=== PATIENT | female | born 1985 | race Caucasian/White ===

== ENCOUNTER 2017-10-15 07:08 | Emergency (ER) | payer SELFPAY ==
[2017-10-15] MEDS ORDERED: NORMAL SALINE 1000 ML 1,000 ML IV PRN (07:35)
[2017-10-15] MEDS ORDERED: ACETAMINOPHEN 325 MG TABLET PO ONE (07:36)
--- NOTE | 2017-10-15 07:38 | ER Document Report ---
ED Fever - General Chief Complaint: Fever Stated Complaint: FEVER Time Seen by Provider: 10/15/17 07:28 Notes: Patient is a 31-year-old female presents emergency department complaining of fever, sore throat, runny nose and dry cough for the past 3 days. She denies any sick contacts at home. She states that she did not get a flu vaccine this year. Otherwise she denies any purulent drainage, ear pain, shortness of breath , chest pain, nausea, vomiting, abdominal pain, diarrhea, constipation. Patient states that she has not been drinking many fluids due to her sore throat. Patient did take Motrin approximately 6 AM 800 mg prior to arrival. Otherwise healthy female. Current smoker TRAVEL OUTSIDE OF THE [place] IN LAST 30 DAYS: No - Related Data Allergies/Adverse Reactions: No Known Allergies Allergy (Unverified 09/12/17 10:48) Past Medical History - Social History Smoking Status: Unknown if Ever Smoked Family History: None Patient has suicidal ideation: No Patient has homicidal ideation: No Pulmonary Medical History: Reports: Hx Asthma Renal/ Medical History: Denies: Hx Peritoneal Dialysis Past Surgical History: Reports: Hx Section, Hx Orthopedic Surgery - left knee - Immunizations Hx Diphtheria, Pertussis, Tetanus Vaccination: Yes Review of Systems - Review of Systems Constitutional: See HPI EENT: See HPI Cardiovascular: No symptoms reported Respiratory: See HPI Gastrointestinal: No symptoms reported -: Yes All other systems reviewed and negative Physical Exam - Vital signs Vitals: Temp Pulse Resp BP Pulse Ox 101.7 F H 111 H 16 98/62 L 97 10/15/17 07:20 10/15/17 07:20 10/15/17 07:20 10/15/17 07:20 10/15/17 07:20 - Notes Notes: PHYSICAL EXAM GENERAL: Alert, interacts well. HEENT: NCAT, pale conjunctiva, extraocular movements intact, pupils PERRL. external ear normal, no evidence of external auditory canal tenderness, blood/ drainage, cerumen impaction, TM intact without evidence of effusion, bulging, injection, MMM, Uvula midline. Airway patent. Pharyngeal erythema with tonsillar exudates no evidence of tonsillar enlargement, peritonsillar abscess, retropharyngeal abscess. NECK: Full range of motion. Supple. Trachea midline. LUNGS: Clear to auscultation bilaterally, no wheezes, rales, or rhonchi. No respiratory distress. HEART: Regular rate and rhythm. No murmurs, gallops, or rubs. ABDOMEN: Soft, nondistended, nontender. No guarding, rebound, or rigidity.. Bowel sounds present in all 4 quadrants. EXTREMITIES: Moves all 4 extremities spontaneously. No edema, radial and dorsalis pedis pulses 2/4 bilaterally. No cyanosis. NEUROLOGICAL: Alert and oriented x4. Normal speech. PSYCH: Normal affect, normal mood. SKIN: Diaphoretic, warm, dry, normal turgor. No rashes or lesions noted. Course - Re-evaluation Re-evalutation: 10/15/17 10:07 Patient is a 31-year-old female presents emergency department with sore throat, fever. Rapid strep was negative as well as influenza and mono. Physical exam is consistent with strep pharyngitis. Patient did receive IM penicillin. Otherwise discussed strict return precautions with the patient and she is stable for discharge home. - Vital Signs Vital signs: Temp Pulse Resp BP Pulse Ox 98.3 F 74 19 98/60 L 97 10/15/17 10:00 10/15/17 10:00 10/15/17 10:00 10/15/17 10:00 10/15/17 10:00 - Laboratory Result Diagrams: 10/15/17 07:50 10/15/17 07:50 Laboratory results interpreted by me: 10/15/17 10/15/17 10/15/17 07:50 07:50 09:05 WBC 22.5 H Seg Neuts % (Manual) 83 H Band Neutrophils % 2 L Lymphocytes % (Manual) 10 L Abs Neuts (Manual) 19.1 H Glucose 144 H Ur Leukocyte Esterase TRACE H Discharge - Discharge Clinical Impression: Strep pharyngitis Condition: Good Disposition: HOME, SELF-CARE Instructions: Strep Throat ([facility]) Additional Instructions: Please be sure to drink plenty of fluids, you can take Tylenol and Motrin as needed for pain. His return to the emergency department with any worsening symptoms, fever of 100 103 not responding to Tylenol and Motrin. Any difficulty swallowing, worsening pain or difficulty speaking or breathing. Referrals: [facility] [NO LOCAL MD] - Follow up as needed [facility] [Provider Group] - Follow up as needed
[2017-10-15 08:11] LABS: HEMATOCRIT 39.6 % (36.0-47.0); HEMOGLOBIN 13.5 g/dL (12.0-15.5); HGB HCT DIFFERENCE 0.9; MEAN CORPUSCULAR HEMOGLOBIN 29.7 pg (27.0-33.4); MEAN CORPUSCULAR HGB CONC 34.2 g/dL (32.0-36.0); MEAN CORPUSCULAR VOLUME 87 fl (80-97); RED BLOOD COUNT 4.56 10^6/uL (3.72-5.28); RED CELL DISTRIBUTION WIDTH 13.7 % (11.5-14.0); WHITE BLOOD COUNT 22.5 10^3/uL (4.0-10.5)
[2017-10-15 08:20] LABS: ANION GAP 12 (5-19); BLOOD UREA NITROGEN 7 mg/dL (7-20); CALCIUM 9.3 mg/dL (8.4-10.2); CARBON DIOXIDE 23 mmol/L (22-30); CHLORIDE 106 mmol/L (98-107); CREATININE RESULT 0.84 mg/dL (0.52-1.25); GLUCOSE 144 mg/dL (75-110); POTASSIUM 3.6 mmol/L (3.6-5.0); SODIUM 141.2 mmol/L (137-145)
--- NOTE | 2017-10-15 08:25 | RADIOLOGY REPORT (SQ) ---
EXAM DESCRIPTION: CHEST PA/LAT COMPLETED DATE/TIME: 10/15/2017 8:17 am REASON FOR STUDY: cough, fever COMPARISON: 09/12/2017. EXAM PARAMETERS: NUMBER OF VIEWS: two views TECHNIQUE: Digital Frontal and Lateral radiographic views of the chest acquired. RADIATION DOSE: NA LIMITATIONS: none FINDINGS: LUNGS AND PLEURA: No opacities, masses or pneumothorax. No pleural effusion. MEDIASTINUM AND HILAR STRUCTURES: No masses or contour abnormalities. HEART AND VASCULAR STRUCTURES: Heart normal size. No evidence for failure. BONES: No acute findings. HARDWARE: None in the chest. OTHER: No other significant finding. IMPRESSION: NO SIGNIFICANT RADIOGRAPHIC FINDING IN THE CHEST. TECHNICAL DOCUMENTATION: JOB ID: [id number] [employer]- All Rights Reserved
[2017-10-15 08:46] LABS: BAND NEUTROPHILS % (MANUAL) 2 % (3-5); BASOPHILS % (MANUAL) 0 % (0-2); EOSINOPHILS % (MANUAL) 0 % (0-6); LYMPHOCYTES % (MANUAL) 10 % (13-45); POLYCHROMASIA SLIGHT; TOTAL CELLS COUNTED 100; TOXIC GRANULATION SLIGHT
[2017-10-15] MEDS ORDERED: PENICILLIN G BENZATHINE 1.2 MILLION UNIT/2 ML DISP.SYRIN IM ONE (09:11)
[2017-10-15] MEDS ORDERED: KETOROLAC TROMETHAMINE INJ/PF 30 MG/1 ML SDV IV ONE (09:12)
[2017-10-15 09:37] LABS: APPEARANCE,URINE SLIGHTLY-CLOUDY; BILIRUBIN,URINE NEGATIVE (NEGATIVE); GLUCOSE, URINE NEGATIVE (NEGATIVE); KETONES,URINE NEGATIVE (NEGATIVE); LEUKOCYTE ESTERASE,URINE TRACE (NEGATIVE); NITRITE,URINE NEGATIVE (NEGATIVE); PROTEIN,URINE NEGATIVE (NEGATIVE); URINE SPECIFIC GRAVITY 1.014; UROBILINOGEN,URINE NEGATIVE mg/dL (<2.0)
[2017-10-15 10:00] VITALS: BP 98/60
== END 2017-10-15 10:19 | disposition home or self-care (01) ==
LOC: ER 07:08
DX: J02.0 Streptococcal pharyngitis (principal); R50.9 Fever, unspecified; R05 Cough; R09.89 Other specified symptoms and signs involving the circulatory and respiratory systems; F17.200 Nicotine dependence, unspecified, uncomplicated; J45.909 Unspecified asthma, uncomplicated
CPT/HCPCS: 99283; 36415; 87070; 87880; 85025; 86308; 80048; 81001; 87804; 71020; J1885; J0561; J7030

== ENCOUNTER 2017-10-17 06:13 | Emergency (ER) | payer SELFPAY ==
[2017-10-17 06:23] VITALS: BP 117/79
[2017-10-17 07:52] LABS: ABSOLUTE EOSINOPHILS # (AUTO) 0.2 10^3/uL (0.0-0.6); ABSOLUTE LYMPHOCYTES (AUTO) 2.1 10^3/uL (0.5-4.7); ABSOLUTE MONOCYTES (AUTO) 0.8 10^3/uL (0.1-1.4); ABSOLUTE NEUT (AUTO) 12.6 10^3/uL (1.7-8.2); BASOPHILS % (AUTO) 0.1 % (0-2); EOSINOPHILS % (AUTO) 1.4 % (0-6); HEMATOCRIT 39.3 % (36.0-47.0); HEMOGLOBIN 13.4 g/dL (12.0-15.5); HGB HCT DIFFERENCE 0.9; LYMPHOCYTES % (AUTO) 13.2 % (13-45); MEAN CORPUSCULAR HEMOGLOBIN 29.5 pg (27.0-33.4); MEAN CORPUSCULAR VOLUME 87 fl (80-97); MONOCYTES % (AUTO) 5.3 % (3-13); RED BLOOD COUNT 4.55 10^6/uL (3.72-5.28); WHITE BLOOD COUNT 15.8 10^3/uL (4.0-10.5)
[2017-10-17 08:05] LABS: ANION GAP 12 (5-19); BLOOD UREA NITROGEN 5 mg/dL (7-20); CALCIUM 9.1 mg/dL (8.4-10.2); CARBON DIOXIDE 27 mmol/L (22-30); CHLORIDE 106 mmol/L (98-107); CREATININE RESULT 0.63 mg/dL (0.52-1.25); GLUCOSE 101 mg/dL (75-110); POTASSIUM 3.9 mmol/L (3.6-5.0); SODIUM 144.5 mmol/L (137-145)
[2017-10-17 08:10] LABS: APPEARANCE,URINE SLIGHTLY-CLOUDY; BILIRUBIN,URINE NEGATIVE (NEGATIVE); GLUCOSE, URINE NEGATIVE (NEGATIVE); KETONES,URINE 20 mg/dL (NEGATIVE); LEUKOCYTE ESTERASE,URINE NEGATIVE (NEGATIVE); NITRITE,URINE NEGATIVE (NEGATIVE); PROTEIN,URINE 30 mg/dL (NEGATIVE); URINE SPECIFIC GRAVITY 1.024
[2017-10-17 08:18] LABS: BACTERIA,URINE 1+ /HPF; RBC,URINE 0-1 /HPF; WBC,URINE 0-1 /HPF
--- NOTE | 2017-10-17 08:40 | ER Document Report ---
ED General - General Chief Complaint: Sore Throat Stated Complaint: INFECTION WORSENING Time Seen by Provider: 10/17/17 07:01 Mode of Arrival: Ambulatory Information source: Patient Notes: Patient is a 31-year-old obese white female who returns to the emergency room from a previous visit on 10/15/2017. During that visit patient had a extensive workup with chest x-ray urine labs and mono and rapid strep all of which were negative with the exception of she had a white count of 22,000. Patient was given a shot of penicillin IM and went home. She had a documented temp here in ER on that day of 101.7. Patient returns today stating she not feeling all that much better. She also complains of new onset of the left eye infection. Patient states that she is finally broken fevers alternating Tylenol and Motrin and she is able to hydrate herself now where she was not before. She is here because she just does not feel that much better. She currently states that there were no fevers while on Tylenol and Motrin and has not had one since being seen on the . Patient also states that prior to her visit on the she had been sick going back into August with an upper respiratory infection that got better on its own which after a week return with sinus presentation was treated with with antibiotics and got better and then this onset. TRAVEL OUTSIDE OF THE [place] IN LAST 30 DAYS: No - HPI Onset: Last week Onset/Duration: Gradual Quality of pain: Achy Pain Level: 3 Associated symptoms: Body/muscle aches, Chills, Nonproductive cough, Sinus pain/ drainage, Sore throat Exacerbated by: Denies Relieved by: Denies Similar symptoms previously: Yes Recently seen / treated by doctor: Yes - Here in ER - Related Data Allergies/Adverse Reactions: No Known Allergies Allergy (Unverified 09/12/17 10:48) Past Medical History - General Information source: Patient - Social History Smoking Status: Current Every Day Smoker Cigarette use (# per day): Yes - One half pack a day Chew tobacco use (# tins/day): No Smoking Education Provided: Yes Frequency of alcohol use: None Drug Abuse: None 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 Lives with: Family Family History: None, Reviewed & Not Pertinent Patient has suicidal ideation: No Patient has homicidal ideation: No Pulmonary Medical History: Reports: Hx Asthma Renal/ Medical History: Denies: Hx Peritoneal Dialysis Past Surgical History: Reports: Hx Section, Hx Orthopedic Surgery - left knee - Immunizations Hx Diphtheria, Pertussis, Tetanus Vaccination: Yes Review of Systems - Review of Systems Constitutional: Chills, Fever, Malaise, Weakness, Recent illness EENT: Eye discharge, Tearing, Nose congestion, Nose discharge, Sinus pressure, Sinus discharge, Throat pain, Difficulty swallowing Cardiovascular: No symptoms reported Respiratory: Cough Gastrointestinal: No symptoms reported Genitourinary: No symptoms reported Female Genitourinary: No symptoms reported Musculoskeletal: No symptoms reported Skin: No symptoms reported Hematologic/Lymphatic: No symptoms reported Neurological/Psychological: No symptoms reported -: Yes All other systems reviewed and negative Physical Exam - Vital signs Vitals: Temp Pulse Resp BP Pulse Ox 98.4 F 90 16 117/79 97 10/17/17 06:18 10/17/17 06:18 10/17/17 06:18 10/17/17 06:18 10/17/17 06:18 Interpretation: Normal - General General appearance: Alert, Other - Patient is awake and alert. No apparent distress at this time. Appears somewhat ill with congestion runny nose noticeable on examination. - HEENT Head: Normocephalic, Atraumatic Eyes: Pale conjunctiva, Tears Conjunctiva: Injected, Purulent discharge, Other - Left side only. Crusting on lashes greenish discharge Ears: Normal External canal: Normal Tympanic membrane: Bulging. No: Normal, Hemotympanum, Injected, Loss of landmarks, Perforation, Purulent effusion, Retracted, Serous effusion, Other Sinus: Abnormal, Frontal, Maxillary, Tenderness Nasal: Purulent discharge Mouth/Lips: Normal Mucous membranes: Normal, Moist Pharynx: Other - Examination patient's posterior pharynx shows a moderate amount of erythema throughout with drainage in the posterior pharynx to be somewhat greenish yellow in color. Patient has bilateral tonsillar enlargement with exudate noted in the crevices of the tonsils. Uvula is midline with erythema but no exudate. There is no encroachment upon the uvula. Airway is patent. Patient also displays mild tenderness on her anterior cervical lymph nodes. Neck: Lymphadenopathy - Respiratory Respiratory status: No respiratory distress Chest status: Nontender Breath sounds: Normal. No: Decreased air movement, Nonproductive cough, Productive cough, Rales, Rhonchi, Stridor, Wheezing, Other Chest palpation: Normal - Cardiovascular Rhythm: Regular Heart sounds: Normal auscultation Murmur: No Normal capillary refill: Yes - Abdominal Inspection: Normal Distension: No distension. No: Distended, Tympanitic, Fluid wave, Distended bladder, Other Bowel sounds: Normal Tenderness: Nontender Organomegaly: No organomegaly, Other - Palpation patient's left side shows no splenomegaly noted at this time.. No: Hepatomegaly, Splenomegaly, Mass - Genitourinary External exam: Normal - Back Back: Normal, Nontender - Neurological Neuro grossly intact: Yes Cognition: Normal Orientation: AAOx4 [place] Com[place] Scale Eye Opening: Spontaneous [place] Coma Scale Verbal: Oriented [place] Com[place] Scale Motor: Obeys Commands [place] Com[place] Scale Total: 15 Speech: Normal Course - Vital Signs Vital signs: Temp Pulse Resp BP Pulse Ox 98.4 F 90 16 117/79 97 10/17/17 06:18 10/17/17 06:18 10/17/17 06:18 10/17/17 06:18 10/17/17 06:18 - Laboratory Result Diagrams: 10/17/17 07:30 10/17/17 07:30 Laboratory results interpreted by me: 10/17/17 10/17/17 10/17/17 07:30 07:30 07:30 WBC 15.8 H Seg Neutrophils % 80.0 H Absolute Neutrophils 12.6 H BUN 5 L Urine Protein Urine Ketones Urine Urobilinogen Urine Ascorbic Acid Monotest POSITIVE H 10/17/17 07:30 WBC Seg Neutrophils % Absolute Neutrophils BUN Urine Protein 30 H Urine Ketones 20 H Urine Urobilinogen 4.0 H Urine Ascorbic Acid 40 H Monotest - Transfer of Care Notes: 10/17/17 08:45 Reexamination patient shows she is awake alert and still oriented. I patient's labs came back positive for mono. Her white count was decreased from 22,000-15, 000. She is afebrile on examination today. At this time our patient's been having the sinusitis in frontal maxillary sinus tenderness going on now for approximately 2-3 weeks she is getting some nasty drainage. Realizes this may be associated with her mono however given the length of time and limited treatment at this time will place her on Augmentin with Sudafed and a little steroid. This is not treating the mono but treating the sinusitis. Discharge - Discharge Clinical Impression: Mononucleosis Sinusitis Qualifiers: Sinusitis location: maxillary Chronicity: subacute Qualified Code(s): J01.00 - Acute maxillary sinusitis, unspecified Condition: Good Disposition: HOME, SELF-CARE Instructions: Sore Throat ([facility]), Mononucleosis ([facility]), Sinusitis ([facility]) Additional Instructions: Home and rest. Medication as prescribed. The antibiotics and the steroid are primarily being used for your sinus condition that has become long-lasting and prior to you getting a mono. There is really no treatment for mononucleosis however you need to monitor yourself if you should have any abdominal pain or discomfort the fevers continue without any resolution or you have any concerns return to ER. Also he should not engage in any type of physical activity that could cause blunt trauma to the abdomen. Should you have concerns return to ER for a recheck. We have given you the [facility] highly suggest you make an appointment for recheck. Continue with Tylenol alternating with Motrin every 4 hours keep the fever down. Continue pushing the fluids to stay hydrated. Prescriptions: Amox Tr/Potassium Clavulanate [Augmentin 875-125 Tablet] 1 tab PO BID 10 Days # 20 tablet Amox Tr/Potassium Clavulanate [Augmentin 875-125 Tablet] 1 tab PO BID 10 Days # 20 tablet Prednisone [Sterapred Ds] 10 mg PO ASDIR PRN 6 Days #1 tab.ds.pk PRN Reason: Prednisone [Sterapred Ds] 10 mg PO ASDIR PRN #1 tab.ds.pk PRN Reason: Pseudoephedrine HCl [Sudafed 12-Hour] 120 mg PO BID #20 tablet.er Pseudoephedrine HCl [Sudafed 12-Hour] 120 mg PO BID #20 tablet.er Forms: Smoking Cessation Education, Elevated Blood Pressure
== END 2017-10-17 09:48 | disposition home or self-care (01) ==
LOC: ER 06:13
DX: H10.9 Unspecified conjunctivitis (principal); J01.00 Acute maxillary sinusitis, unspecified; B27.90 Infectious mononucleosis, unspecified without complication; E66.9 Obesity, unspecified; F17.210 Nicotine dependence, cigarettes, uncomplicated
CPT/HCPCS: 36415; 80048; 81001; 85025; 86308; 87070; 87880; 99283

== ENCOUNTER 2017-10-30 11:44 | Emergency (ER) | payer SELFPAY ==
[2017-10-30] MEDS ORDERED: ALBUTEROL SULFATE 0.083% NEB 2.5 MG/3 ML AMPUL NEB ONE (12:39)
--- NOTE | 2017-10-30 12:41 | ER Document Report ---
ED Medical Screen (RME) - General Chief Complaint: Breathing Difficulty Stated Complaint: DIFFICULTY BREATHING Time Seen by Provider: 10/30/17 12:38 Mode of Arrival: Ambulatory Information source: Patient Notes: Patient states that this is her fourth visit in 3 weeks for cough cold and congestion. She states she was initially told that she had an upper respiratory infection and was placed on Zithromax. It would not get any better so she returned and was diagnosed with mono. This was still not improving so she went to urgent care and was diagnosed with sinusitis and given Augmentin. She states she has now finished Augmentin but does not feel any better. She states she is still short of breath and congested and has productive cough. She is taking albuterol and prednisone at home but no relief. TRAVEL OUTSIDE OF THE [place] IN LAST 30 DAYS: No - Related Data Allergies/Adverse Reactions: No Known Allergies Allergy (Verified 10/30/17 11:45) Past Medical History - Social History Chew tobacco use (# tins/day): No Frequency of alcohol use: None Drug Abuse: None Pulmonary Medical History: Reports: Hx Asthma - smoker Renal/ Medical History: Denies: Hx Peritoneal Dialysis Past Surgical History: Reports: Hx Section, Hx Orthopedic Surgery - left knee - Immunizations Hx Diphtheria, Pertussis, Tetanus Vaccination: Yes Physical Exam - Vital signs Vitals: Temp Pulse Resp BP Pulse Ox 98.3 F 108 H 20 121/78 97 10/30/17 12:08 10/30/17 12:08 10/30/17 12:08 10/30/17 12:08 10/30/17 12:08 Course - Vital Signs Vital signs: Temp Pulse Resp BP Pulse Ox 98.3 F 108 H 20 121/78 97 10/30/17 12:08 10/30/17 12:08 10/30/17 12:08 10/30/17 12:08 10/30/17 12:08
[2017-10-30 13:11] LABS: ABSOLUTE LYMPHOCYTES (AUTO) 1.1 10^3/uL (0.5-4.7); ABSOLUTE MONOCYTES (AUTO) 0.3 10^3/uL (0.1-1.4); ABSOLUTE NEUT (AUTO) 10.4 10^3/uL (1.7-8.2); BASOPHILS % (AUTO) 0.3 % (0-2); EOSINOPHILS % (AUTO) 0.1 % (0-6); HEMATOCRIT 40.4 % (36.0-47.0); HEMOGLOBIN 13.7 g/dL (12.0-15.5); HGB HCT DIFFERENCE 0.7; LYMPHOCYTES % (AUTO) 9.2 % (13-45); MEAN CORPUSCULAR HEMOGLOBIN 29.5 pg (27.0-33.4); MEAN CORPUSCULAR HGB CONC 33.8 g/dL (32.0-36.0); MEAN CORPUSCULAR VOLUME 87 fl (80-97); MONOCYTES % (AUTO) 2.5 % (3-13); RED BLOOD COUNT 4.64 10^6/uL (3.72-5.28); RED CELL DISTRIBUTION WIDTH 14.3 % (11.5-14.0); SEGMENTED NEUTROPHILS % (AUTO) 87.9 % (42-78); WHITE BLOOD COUNT 11.8 10^3/uL (4.0-10.5)
[2017-10-30 13:27] LABS: ALANINE AMINOTRANSFERASE 43 U/L (9-52); ALBUMIN 4.4 g/dL (3.5-5.0); ALKALINE PHOSPHATASE 101 U/L (38-126); ANION GAP 12 (5-19); ASPARTATE AMINO TRANSFERASE 22 U/L (14-36); BILIRUBIN,DIRECT 0.2 mg/dL (0.0-0.4); BILIRUBIN,TOTAL 0.2 mg/dL (0.2-1.3); BLOOD UREA NITROGEN 7 mg/dL (7-20); CALCIUM 9.8 mg/dL (8.4-10.2); CARBON DIOXIDE 26 mmol/L (22-30); CHLORIDE 104 mmol/L (98-107); CREATININE RESULT 0.69 mg/dL (0.52-1.25); GLUCOSE 114 mg/dL (75-110); POTASSIUM 4.3 mmol/L (3.6-5.0)
--- NOTE | 2017-10-30 13:46 | RADIOLOGY REPORT (SQ) ---
EXAM DESCRIPTION: CHEST PA/LAT COMPLETED DATE/TIME: 10/30/2017 1:05 pm REASON FOR STUDY: cough/sob COMPARISON: 10/15/2017 EXAM PARAMETERS: NUMBER OF VIEWS: two views TECHNIQUE: Digital Frontal and Lateral radiographic views of the chest acquired. RADIATION DOSE: NA LIMITATIONS: none FINDINGS: LUNGS AND PLEURA: No opacities, masses or pneumothorax. No pleural effusion. MEDIASTINUM AND HILAR STRUCTURES: No masses or contour abnormalities. HEART AND VASCULAR STRUCTURES: Heart normal size. No evidence for failure. BONES: No acute findings. HARDWARE: None in the chest. OTHER: No other significant finding. IMPRESSION: NO SIGNIFICANT RADIOGRAPHIC FINDING IN THE CHEST. TECHNICAL DOCUMENTATION: JOB ID: [id number] [employer]- All Rights Reserved
[2017-10-30] MEDS ORDERED: IPRATROPIUM/ALBUTEROL 0.5-2.5 MG/3 ML AMPUL NEB ONE (14:56)
--- NOTE | 2017-10-30 14:56 | ER Document Report ---
ED Respiratory Problem - General Chief Complaint: Breathing Difficulty Stated Complaint: DIFFICULTY BREATHING Time Seen by Provider: 10/30/17 12:38 Mode of Arrival: Ambulatory Notes: 32 years old female who was a smoker presents today with runny nose sore throat cough coughing and wheezing. When she coughs brings out yellow green sputum. Denies any fever chills, denies any nausea vomiting or other constitutional symptoms. TRAVEL OUTSIDE OF THE [place] IN LAST 30 DAYS: No - Related Data Allergies/Adverse Reactions: No Known Allergies Allergy (Verified 10/30/17 11:45) Past Medical History - General Information source: Patient - Social History Smoking Status: Current Every Day Smoker Chew tobacco use (# tins/day): No Frequency of alcohol use: None Drug Abuse: None Family History: None, Reviewed & Not Pertinent Patient has suicidal ideation: No Patient has homicidal ideation: No Pulmonary Medical History: Reports: Hx Asthma - smoker Renal/ Medical History: Denies: Hx Peritoneal Dialysis Past Surgical History: Reports: Hx Section, Hx Orthopedic Surgery - left knee - Immunizations Hx Diphtheria, Pertussis, Tetanus Vaccination: Yes Review of Systems - Review of Systems Notes: REVIEW OF SYSTEMS: CONSTITUTIONAL : Denies fever, chills, or sweats. Denies recent illness. EENT: Denies eye, ear, throat, or mouth pain or symptoms. Denies nasal or sinus congestion or discharge. Denies throat, tongue, or mouth swelling or difficulty swallowing. CARDIOVASCULAR: Denies chest pain. Denies palpitations or racing or irregular heart beat. Denies ankle edema. RESPIRATORY: GASTROINTESTINAL: Denies abdominal pain or distention. Denies nausea, vomiting , or diarrhea. Denies blood in vomitus, stools, or per rectum. Denies black, tarry stools. Denies constipation. GENITOURINARY: Denies difficulty urinating, painful urination, burning, frequency, blood in urine, or discharge. FEMALE GENITOURINARY: Denies vaginal bleeding, heavy or abnormal periods, irregular periods. Denies vaginal discharge or odor. MUSCULOSKELETAL: Denies back or neck pain or stiffness. Denies joint pain or swelling. SKIN: Denies rash, lesions or sores. HEMATOLOGIC : Denies easy bruising or bleeding. LYMPHATIC: Denies swollen, enlarged glands. NEUROLOGICAL: Denies confusion or altered mental status. Denies passing out or loss of consciousness. Denies dizziness or lightheadedness. Denies headache. Denies weakness or paralysis or loss of use of either side. Denies problems with gait or speech. Denies sensory loss, numbness, or tingling. Denies seizures. PSYCHIATRIC: Denies anxiety or stress. Denies depression, suicidal ideation, or homicidal ideation. ALL OTHER SYSTEMS REVIEWED AND NEGATIVE. PHYSICAL EXAMINATION: GENERAL: Well-appearing, well-nourished and in no acute distress. HEAD: Atraumatic, normocephalic. EYES: Pupils equal round and reactive to light, extraocular movements intact, conjunctiva are normal. ENT: Nares patent, oropharynx mucosa is erythematous and coated tongue, pharyngeal mucosa is erythematous.-. Moist mucous membranes. NECK: Normal range of motion, supple without lymphadenopathy LUNGS: bilaterally expiratory wheeze throughout the lung hill, no rales HEART: Regular rate and rhythm without murmurs ABDOMEN: Soft, nontender, nondistended abdomen. No guarding, no rebound. No masses appreciated. Female : deferred Musculoskeletal: Normal range of motion, no pitting or edema. No cyanosis. NEUROLOGICAL: Cranial nerves grossly intact. Normal speech, normal gait. Normal sensory, motor exams PSYCH: Normal mood, normal affect. SKIN: Warm, Dry, normal turgor, no rashes or lesions noted. Dictation was performed using [employer] voice recognition software Physical Exam - Vital signs Vitals: Temp Pulse Resp BP Pulse Ox 98.3 F 108 H 20 121/78 97 10/30/17 12:08 10/30/17 12:08 10/30/17 12:08 10/30/17 12:08 10/30/17 12:08 Course - Re-evaluation Re-evalutation: 10/30/17 17:33 She was given prednisone as well as bronchodilator treatment with DuoNeb. With clinical improvement subsequently discharged home. - Vital Signs Vital signs: Temp Pulse Resp BP Pulse Ox 98.3 F 108 H 20 121/78 97 10/30/17 12:08 10/30/17 12:08 10/30/17 12:08 10/30/17 12:08 10/30/17 12:08 - Laboratory Result Diagrams: 10/30/17 12:54 10/30/17 12:54 Laboratory results interpreted by me: 10/30/17 10/30/17 12:54 12:54 WBC 11.8 H RDW 14.3 H Seg Neutrophils % 87.9 H Lymphocytes % 9.2 L Monocytes % 2.5 L Absolute Neutrophils 10.4 H Glucose 114 H - Diagnostic Test Radiology results interpreted by me: 10/30/17 17:33 Chest x-ray reported by radiologist as negative finding. Discharge - Discharge Clinical Impression: Wheezy bronchitis Pharyngitis Qualifiers: Pharyngitis/tonsillitis etiology: unspecified etiology Qualified Code(s): J02.9 - Acute pharyngitis, unspecified Condition: Good Disposition: HOME, SELF-CARE Instructions: Bronchitis ([facility]) Prescriptions: Albuterol Sulfate [Proair Hfa Inhalation Aerosol 8.5 gm Mdi] 1 puff IH Q4 PRN # 1 mdi PRN Reason: Azithromycin [Zithromax 250 mg Tablet] 250 mg PO ASDIR PRN #6 tablet PRN Reason: Guaifenesin/Codeine Phos [Robitussin-AC Syrup 59 ml] 10 ml PO NOW #120 ml Prednisone 5 mg PO DAILY #1 tab.ds.pk
[2017-10-30] MEDS ORDERED: PREDNISONE 20 MG TABLET PO ONE (14:57)
[2017-10-30 18:01] VITALS: BP 116/72
== END 2017-10-30 18:00 | disposition home or self-care (01) ==
LOC: ER 11:44
DX: J45.909 Unspecified asthma, uncomplicated (principal); J02.9 Acute pharyngitis, unspecified; R09.89 Other specified symptoms and signs involving the circulatory and respiratory systems; R05 Cough; F17.200 Nicotine dependence, unspecified, uncomplicated
CPT/HCPCS: 94640 ×2; 99285; 36415; 87070; 87880; 85025; 80053; 71020; J7512; J7620